=== PATIENT | female | born 1970 | race Caucasian/White ===

== ENCOUNTER 2023-07-28 21:19 | Emergency (ER) | payer MEDICARE, SELFPAY ==
[2023-07-28 21:29] VITALS: BP 86/63; RESP 16; TEMP 37.1; O2SAT 96; BMI 37.8
--- NOTE | 2023-07-28 21:36 | ED_ITS ---
HPI - Back Pain/Injury General Chief Complaint: Back Pain/Injury Stated Complaint: back/hip pain Time Seen by Provider: 07/28/23 21:26 Source: patient Mode of arrival: walk-in Limitations: physical limitation History of Present Illness HPI Narrative: patient with chronic low back pain for which she sees pain management presents to the ED with worsening low back pain. No recent injury, fall or trauma. No bowel or bladder dysfunction. UE or LE paralysis, weakness or sensory change. She takes muscle relaxer and anti-inflammatory at home. She said Toradol does nothing for me . Related Data Home Medications Medication Instructions Recorded Confirmed albuterol sulfate 90 mcg/actuation inhalation 07/28/23 aerosol inhaler blood glucose control high and low 07/28/23 07/28/23 solution (Accu-Chek Guide L1-L2 Control Solution) blood sugar diagnostic (Accu-Chek 07/28/23 07/28/23 Guide test strips) budesonide 160 mcg-glycopyr 9 inh inhalation 07/28/23 mcg-formot 4.8 mcg/actuation HFA inhaler ([employer] Aerosphere) empagliflozin 25 mg tablet mg 07/28/23 (Jardiance) lancets 31 gauge (Ultra Thin 07/28/23 07/28/23 Lancets) lancing device 07/28/23 07/28/23 losartan 50 mg tablet mg 07/28/23 lovastatin 40 mg tablet mg 07/28/23 metformin 500 mg tablet,extended mg PO 07/28/23 release 24 hr pantoprazole 40 mg tablet,delayed mg PO 07/28/23 release tizanidine 4 mg tablet mg 07/28/23 triamcinolone acetonide 0.1 % topical 07/28/23 topical ointment zonisamide 100 mg capsule mg PO 07/28/23 Allergies Allergy/AdvReac Type Severity Reaction Status Date / Time montelukast [From Singulair] AdvReac Verified 07/28/23 21:26 [facility] Social History Smoking status: Current every day smoker Exam Narrative Exam Narrative: General: Alert, no acute distress, patient resting comfortably Skin: warm, intact, no pallor noted Head: Normocephalic, atraumatic Eye: Normal conjunctiva Respiratory: No acute distress Abdomen: Normal bowel sounds, soft, nontender, no masses detected. No rebound, guarding, or rigidity noted. Back: inspection of the back shows no obvious deformity, no swelling, no ecchymosis, contusion, abrasion, swelling, erythema, fluctuance or induration. Tenderness noted to Lubosacral region and left paralumbar area. Straight leg raise on left is positive. Straight leg raise on right is positive. No CVA tenderness noted bilaterally. Musculoskeletal: No deformity noted to bilateral lower extremities. no cyanosis or mottling noted. normal pulses at DP and PT 2+ bilaterally and symmetrically. Normal 5/5 strength at ankles with dorsiflexion and plantar flexion. Patient is able to ambulate. Normal sensation noted to both lower extremities. Neurological: AAOx4, normal sensory and motor observed. L5-S1 reflexes intact symmetrically. DTR 2+ at patellar bilaterally. Psychiatric: Cooperative and interactive. Constitutional Vital Signs, click to edit/add: Last Vital Signs Temp 98.7 F 07/28/23 21:29 Resp 16 07/28/23 21:29 BP 86/63 L 07/28/23 21:29 Pulse Ox 96 07/28/23 21:29 O2 Del Method Room Air 07/28/23 21:29 Course Vital Signs Vital signs: Vital Signs Temperature 98.7 F 07/28/23 21:29 Respiratory Rate 16 07/28/23 21:29 Blood Pressure 86/63 L 07/28/23 21:29 Pulse Oximetry 96 07/28/23 21:29 Oxygen Delivery Method Room Air 07/28/23 21:29 Temperature 98.7 F 07/28/23 21:29 Respiratory Rate 16 07/28/23 21:29 Blood Pressure 86/63 L 07/28/23 21:29 Pulse Oximetry 96 07/28/23 21:29 Oxygen Delivery Method Room Air 07/28/23 21:29 MDM - Back Pain/Injury MDM Narrative Medical decision making narrative: Patient given IM Solu-Medrol and IM Dilaudid and discharged home. She can see her pain management physician next week. This is an acute exacerbation of her chronic pain. She did not suffer from a fall, blunt trauma, MVA or other associated events. She does not have any isac rological deficits to suggest acute cauda equina syndrome. No imaging necessary. Discharge Plan Discharge Chief Complaint: Back Pain/Injury Clinical Impression: Acute exacerbation of chronic low back pain Patient Disposition: Home, Self-Care Time of Disposition Decision: 21:39 Prescriptions / Home Meds: No Action losartan 50 mg tablet tizanidine 4 mg tablet lovastatin 40 mg tablet (DME) Accu-Chek Guide test strips Strip MISCELLANEOUS zonisamide 100 mg capsule PO pantoprazole 40 mg tablet,delayed release (DR/EC) PO triamcinolone acetonide 0.1 % ointment TOPICAL albuterol sulfate 90 mcg/actuation HFA aerosol inhaler INHALATION metformin 500 mg tablet extended release 24 hr PO (DME) lancing device Misc MISCELLANEOUS (DME) Accu-Chek Guide L1-L2 Ctrl Alicia Solution MISCELLANEOUS (DME) Ultra Thin Lancets 31 gauge [facility] [place] MISCELLANEOUS Jardiance 25 mg tablet Breztri Aerosphere 160-9-4.8 mcg/actuation HFA aerosol inhaler INHALATION Instructions: Pain Management (ED), Acute Low Back Pain (ED) Stand Alone Forms: Portal Instructions Referrals: KAT WYNN [Primary Care Provider] - 1 week
[2023-07-28] MEDS: METHYLPREDNISOLONE SOD SUCC PF 125 MG/2 ML VIAL IM (22:50)
[2023-07-28] MEDS: HYDROMORPHONE HCL 1 MG/ML CARTRIDGE IM (22:50)
[2023-07-28 23:17] VITALS: BP 100/63; PULSE 88; RESP 16; TEMP 36.7; O2SAT 98
== END 2023-07-28 23:17 | disposition home or self-care (01) ==
PROVIDERS: Emergency Provider Emergency Medicine; PCP Family Medicine
DX: M54.50 Low back pain, unspecified (principal); G89.29 Other chronic pain; Z79.899 Other long term (current) drug therapy; Z79.84 Long term (current) use of oral hypoglycemic drugs; F17.210 Nicotine dependence, cigarettes, uncomplicated
CPT/HCPCS: 99284; J1170; J2930